=== PATIENT | male | born 1945 | race Caucasian/White ===

== ENCOUNTER 2019-12-23 07:36 | Outpatient (CLI) | payer MEDICARE, OTHER ==
[~2019-12-23] VITALS: Ht 177.8 cm; Wt 100.0 kg
[2019-12-23 08:06] LABS: HEMOGLOBIN 13.1 g/dl (13.5-18.0); MEAN CELL VOLUME 101 fl (80.0-100.0); MEAN CORPUSCULAR HEMOGLOBIN 35 pg (27.0-31.0); MEAN CORPUSCULAR HGB CONC 35 g/dl (33.0-37.0); MEAN PLATELET VOLUME 9.1 fl (7.4-10.4); PLATELET COUNT 178 K/mm3 (130-400); RED BLOOD COUNT 3.78 M/mm3 (4.20-5.60); REDCELL DISTRIBUTION WIDTH-CV 14.6 % (11.5-14.5)
[2019-12-23 08:14] LABS: CREATININE, serum 1.85 (0.66-1.25); POTASSIUM 4.4 mmol/L (3.4-5.0)
[2019-12-23 08:51] VITALS: BP 125/75; PULSE 68; TEMP 98.8
[2019-12-23] MEDS ORDERED: COLACE 100100 MG/CAP PO (10:04)
[2019-12-23] MEDS ORDERED: MOBIC15 MG PO (10:05)
[2019-12-23] MEDS ORDERED: FLOMAX 0.40.4 MG/CAP PO (10:06)
[2019-12-23] MEDS ORDERED: ULTRAM 50MG TAB50 MG PO (10:06)
[2019-12-23] MEDS ORDERED: COUMADIN 6MG6 MG/TAB PO (10:06)
[2019-12-23] MEDS ORDERED: TIAZAC180 MG PO (10:07)
[2019-12-23] MEDS ORDERED: LIPITOR 40MG TA40 MG PO (10:07)
[2019-12-23] MEDS ORDERED: ZESTRIL2.5 MG PO (10:08)
[2019-12-23 12:00] VITALS: BP 144/90; PULSE 72
--- NOTE | 2019-12-23 12:45 | NUR ---
pt to CT scanner via w/c, returned and IV lasix given 40mg as ordered
--- NOTE | 2019-12-23 14:00 | NUR ---
pt up to b/r to void x2, int d'cd intact, unable to get disc for pt as directed due to disc machine at hospital is down will come from [place] sometime Thursday, explained to pt situation, and that Dr vasu Forte can access it at office thru [facility]. Pt discharged at 1415 ambulatory
== END 2019-12-23 14:15 | disposition home or self-care (01) ==
LOC: EUO 07:36 → SDCO 07:36 → EDSTATUS 08:00 → SDCO 11:28 → EUO 14:15 → SDCO 14:54
PROVIDERS: Internal Medicine Interventional Cardiology
DX: I77.810 Thoracic aortic ectasia (principal); J43.9 Emphysema, unspecified; J98.6 Disorders of diaphragm; Z90.49 Acquired absence of other specified parts of digestive tract
CPT/HCPCS: J1940; Q9967

== ENCOUNTER → 2020-09-13 | Outpatient (CLI) | payer MEDICARE, OTHER ==
[~2020-09-13] MED LIST: COLACE 100100 MG/CAP PO; COUMADIN 6MG6 MG/TAB PO; FLOMAX 0.40.4 MG/CAP PO; LIPITOR 40MG TA40 MG PO; MOBIC15 MG PO; TIAZAC180 MG PO; ULTRAM 50MG TAB50 MG PO; ZESTRIL2.5 MG PO
== END ==
LOC: COL.RAD 07:22
DX: J43.9 Emphysema, unspecified (principal); I25.10 Atherosclerotic heart disease of native coronary artery without angina pectoris; Z86.16 Personal history of COVID-19

== ENCOUNTER → 2020-10-02 | Outpatient (CLI) | payer MEDICARE, OTHER | LOC: COL.RAD 09:51 | DX: J43.9 Emphysema, unspecified (principal); J98.6 Disorders of diaphragm; Z98.890 Other specified postprocedural states ==

== ENCOUNTER → 2021-07-22 | Outpatient (CLI) | payer MEDICARE, OTHER | LOC: COL.RAD 10:30 | DX: Z12.2 Encounter for screening for malignant neoplasm of respiratory organs (principal); J43.9 Emphysema, unspecified; R91.1 Solitary pulmonary nodule; Z95.828 Presence of other vascular implants and grafts; Z87.891 Personal history of nicotine dependence; Z90.49 Acquired absence of other specified parts of digestive tract ==

== ENCOUNTER → 2022-07-23 | Outpatient (CLI) | payer MEDICARE, OTHER | LOC: COL.RAD 12:56 | DX: Z12.2 Encounter for screening for malignant neoplasm of respiratory organs (principal); R91.1 Solitary pulmonary nodule; N26.1 Atrophy of kidney (terminal); Z87.891 Personal history of nicotine dependence ==

== ENCOUNTER 2024-03-11 15:24 | Emergency (ER) | payer MEDICARE, OTHER ==
[~2024-03-11] VITALS: Ht 177.8 cm; Wt 90.0 kg
[2024-03-11 15:33] VITALS: TEMP 98.5
[2024-03-11] MEDS ORDERED: NS 1,000 ML IV ONE (16:00)
[2024-03-11 16:05] LABS: BASO % 0.5 % (0.0-2.0); EOS # 0.1 K/mm3 (0.0-0.7); EOS % 1.8 % (0.0-4.0); GRAN # 3.9 K/mm3 (1.4-6.5); GRAN % 72.1 % (42.2-75.2); HEMATOCRIT 37.2 % (42.0-52.0); HEMOGLOBIN 12.5 g/dl (13.5-18.0); LYMPH % 18.1 % (20.0-51.0); MEAN CELL VOLUME 91 fl (80.0-100.0); MEAN CORPUSCULAR HEMOGLOBIN 31 pg (27-31); MEAN CORPUSCULAR HGB CONC 34 g/dl (33.0-37.0); MEAN PLATELET VOLUME 9.2 fl (7.4-10.4); MONO # 0.4 K/mm3 (0.1-0.6); MONO % 7.1 % (1.7-9.3); PLATELET COUNT 153 K/mm3 (130-400); RED BLOOD COUNT 4.09 M/mm3 (4.20-5.60)
[2024-03-11 16:25] LABS: INR 5.6 (0.8-3.0); PROTHROMBIN TIME 58.3 SECONDS (9.7-12.8)
[2024-03-11 16:27] LABS: ALANINE AMINOTRANSFERASE 7 U/L (0-55); ALBUMIN 3.4 g/dL (3.4-4.8); ALKALINE PHOSPHATASE 94 U/L (40-150); ANION GAP 13 mmol/L (7-16); AST,SGOT 11 U/L (5-34); BILIRUBIN,TOTAL 0.5 mg/dL (0.2-1.2); BLOOD UREA NITROGEN 22 mg/dL (8-26); CALCIUM 9.4 mg/dL (8.4-10.2); CHLORIDE 106 mEq/L (98-107); GLUCOSE 94 mg/dL (70-99); SODIUM 137 mEq/L (136-145)
[2024-03-11 16:34] LABS: TROPONIN-I < 0.010 ng/mL (0.00-0.033)
[2024-03-11 17:35] VITALS: BP 130/81; PULSE 81
== END 2024-03-11 17:45 | disposition home or self-care (01) ==
LOC: COL.ER 15:24
PROVIDERS: Emergency Medicine
DX: R06.02 Shortness of breath (principal); R79.1 Abnormal coagulation profile; Z86.718 Personal history of other venous thrombosis and embolism; Z79.01 Long term (current) use of anticoagulants
CPT/HCPCS: J7030